=== PATIENT | male | born 1950 | race Caucasian/White ===

== ENCOUNTER 2021-10-28 10:47 | Emergency (ER) | payer OTHER, BC ==
--- OUTSIDE RECORDS SUMMARY | 2021-10-28 10:49 | XMS REPORT | Continuity of Care Document ---
:1950 Author Organization [facility] t Address [address] [place] [address] Dr. Taylor [address] [place] [address] Care Team Providers Name Role Phone SOHAN PERALTA Attending Clinician Unavailable Problems This patient has no known problems. Allergies, Adverse Reactions, Alerts This patient has no known allergies or adverse reactions. Medications This patient has no known medications. Procedures This patient has no known procedures. Encounters Start End Encounter Admission Attending Care Care Encounter Source Date/Time Date/Time Type Type Clinicians Facility Department ID 2020-02-17 2020-02-17 Outpatient FABIAN [facility] [id number] [address] 00:00:00 00:00:00 SOHAN [address] 2020-02-17 2020-02-17 Outpatient FABIAN [facility] [id number] 00:00:00 00:00:00 SOHAN [address] Results Test Description Test Time Test Comments Results Result Comments Source SURG 2018-01-06 13:32:00 --------RUN DATE: 01/06/18 [facility] - LAB *LIVE* PAGE 1 RUN TIME: 1332 Specimen Inquiry RUN USER: INTERFACE --------PATIENT: ADALI SÁNCHEZ LOC: [place] U #: [id number] AGE/SX: 67/M ROOM: [facility] RE01/04/18REG DR: Randall Quiñones MD : 50 BED: 1 DIS: 01/06/18 STATUS: DIS IN TLOC: -------- SPEC #: [id number] RECD: 01/05/18 STATUS: HILL REQ #: [id number] ASTER: 01/04/[address]: Randall Quiñones MD ENTERED: 01/05/18 SP TYPE: SURG OTHR DR: Raji Almazan MD, Musaddiq MDORDERED: SURG PATH LVL 4 COPIES TO: Randall Quiñ[place] [id number] [address] [place] [address] [email or web address] Raji Almazan MD [address] [facility] [address] [place] [address] [place] [address] [address] [place], [place] [id number] HISTOLOGY: TISSUE ID BLK PCS CODY LEV PROCEDURE DISPOSITION ____ ___ ___ ___ PROSTATE, NOS A 1-15 1 PROCEDURES: SURG PATH LVL 4 (01/05/18) TISSUES: A. PROSTATE, NOS - PROSTATE CHIPS CLINICAL HISTORY BENIGN PROSTATIC HYPERTROPHY W/OUTFLOW OBSTRUCTION CPT CODES CPT CODE(S): 37870 , , , , , , FINAL DIAGNOSIS Prostate chips, transurethral resection: BENIGN NODULAR HYPERPLASIA CONTINUED ON NEXT PAGE --------RUN DATE: 01/06/18 [facility] - LAB *LIVE* PAGE 2 RUN TIME: 1332 Specimen Inquiry RUN USER: INTERFACE --------SPEC #: [id number] PATIENT: ADALI SÁNCHEZ #[id number] (Continued) GROSS DESCRIPTION Prostate chips. Received in formalin are multiple irregular fragments of duncan-brown fibrous tissue, 8.5 x 7.5 x 0.8 cm and weigh 15.2 grams. Foam Gun Operator sections submitted as A1 - A13. ba/nr Grossing performed at [facility], [address] [place] [address], [address], [place] [address]. Electric Trucker: Sony Wyatt M.D. MICROSCOPIC DESCRIPTION Prostate chips. Sections demonstrate a nodular proliferation of stromal tissue with cystic glands. Focal clusters of lymphocytes are seen throughout the stroma. There is no evidence of malignancy. /cm Signed SIGNATURE ON FILE Senait Luna 01/06/18 1332 -------- END OF REPORT
--- NOTE | 2021-10-28 11:23 | RAD REPORT ---
EXAM DESCRIPTION: CT - Head C Spine Mpr Wo Con - 10/28/2021 11:01 am CLINICAL HISTORY: Head and neck injury status post fall. Head and neck pain COMPARISON: None. TECHNIQUE: Computed axial tomography of the head and cervical spine was obtained. Sagittal and coronal reconstruction was performed. All CT scans are performed using dose optimization technique as appropriate and may include automated exposure control or mA/KV adjustment according to patient size. FINDINGS: An intracranial bleed is not seen. The ventricles are normal in caliber. An extra-axial fl uid collection is not noted.Fluid within the visualized sinuses and mastoids is not seen A cervical fracture is not visualized. No dislocation is noted. Slight posterior subluxation C4 on C5 . No soft tissue swelling seen IMPRESSION: No acute intracranial abnormality is seen. A cervical fracture is not visualized. If the patient continues to have symptoms to suggest intracra nial /spinal cord/ligamentous pathology then MRI would be recommended
--- NOTE | 2021-10-28 11:24 | RAD REPORT ---
EXAM DESCRIPTION: RAD - Elbow Right 3 View - 10/28/2021 11:12 am CLINICAL HISTORY: Elbow pain FINDINGS: No fracture or dislocation is seen.
--- NOTE | 2021-10-28 11:26 | RAD REPORT ---
EXAM DESCRIPTION: Leoncio Single View10/28/2021 11:12 am CLINICAL HISTORY: Chest pain COMPARISON: none FINDINGS: The lungs appear clear of acute infiltrate. The heart is normal size IMPRESSION: No acute abnormalities displayed
[2021-10-28] MEDS ORDERED: LIDOCAINE 1% W/EPI 1:100,000 MDV 20 ML VIAL ONE (11:46)
[2021-10-28 11:49] LABS: Hematocrit 47.8 % (39.6-49.0); Lymphocytes % 14.9 % (15.3-44.8); RBC Red Blood Cell Count 5.09 M/uL (4.33-5.43)
[2021-10-28 11:59] LABS: Potassium 5.4 mmol/L (3.5-5.1)
[2021-10-28] MEDS ORDERED: TETANUS & DIPHTHERIA TOX,ADULT 0.5 ML VIAL ONE (12:07)
--- NOTE | 2021-10-28 12:25 | ER ---
Nurse's Notes [facility] Name: Evi Dubose III Age: 71 yrs Sex: Male : 1950 Arrival Date: 10/28/2021 Time: 10:47 Bed 2 Private MD: Diagnosis: Laceration without foreign body of right elbow, initial encounter;Fall;Lost of Conciousness Presentation: 10/28 10:50 Ebola Screen: No symptoms or risks identified at this time. Initial Sepsis Screen: Does ph the patient meet any 2 criteria? No. Patient's initial sepsis screen is negative. Does the patient have a suspected source of infection? No. Patient's initial sepsis screen is negative. Risk Assessment: Do you want to hurt yourself or someone else? Patient reports no desire to harm self or others. Onset of symptoms was October 28, 2021. 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 Coronavirus screen: Vaccine status: Patient reports receiving the 2nd dose of the covid vaccine. 10:58 Care prior to arrival: Medication(s) given: Normal saline infusion, 250 mL IV ph initiated. 20 GA, in the left antecubital area. Mechanism of Injury: Fall Scaffold approximately 3 feet. Trauma event details: Injury occurred in the [facility], Injury occurred: at home. Injury occurred: October 28, 2021. Trauma Activation: Alert Physician: ED Physician; Name: ; Notified At: ; Arrived At: Physician: General Surgeon; Name: ; Notified At: ; Arrived At: Physician: Radiology; Name: ; Notified At: ; Arrived At: Physician: Respiratory; Name: ; Notified At: ; Arrived At: Physician: Lab; Name: ; Notified At: ; Arrived At: Historical: - Allergies: 10:48 No Known Allergies; ph - Home Meds: 10:48 atorvastatin 10 mg Oral tab 1 tab once daily [Active]; Synthroid Oral [Active]; ph Claritin 10 mg Oral tab 1 tab once daily [Active]; - PMHx: 10:48 "prostate swelling"; Hypertension; Hypothyroidism; Kidney stones; R inguenal hernia; ph - Immunization history:: Adult Immunizations unknown. - Social history:: Smoking status: Patient denies any tobacco usage or history of. - Immunization history: Last tetanus immunization: unknown. Screenin:49 Abuse screen: Denies threats or abuse. Denies injuries from another. Nutritional ph screening: No deficits noted. Tuberculosis screening: No symptoms or risk factors identified. Fall Risk None identified. Primary Survey: 10:43 NO uncontrolled hemorrhage observed. A: The client is awake and alert. The airway is jl7 patent. Breathing/Chest: Spontaneous respiratory effort, equal unlabored respirations, breath sounds clear bilaterally, regular pattern, symmetrical chest rise and fall. Circulation: No external hemorrhage present. Regular and strong central pulse, skin warm/dry/normal color. Disability Client is alert. Exposure/Environment: All clothing and personal items were removed. Forensic evidence collection is not deemed to be indicated at this time. Items placed in patient belonging bag. There is no evidence of uncontrolled external bleeding. Obvious injury(ies) are noted at this time: laceration noted to right elbow, bleeding controlled. 12:32 Reassessment Alertness and Airway: Airway Patent Breathing: Spontaneous respiratory ph effort, equal unlabored respirations, breath sounds clear bilaterally, regular pattern with symmetrical chest rise and fall. Circulation: No external hemorrhage noted. Regular and strong central pulse, skin warm/dry/normal color. Disability: Pupils Pupils are equal, round, reactive to light and accomodation. Alert. Assessment: 10:54 General: Appears in no apparent distress. comfortable, Behavior is calm, cooperative, ph appropriate for age. Pain: Complains of pain in right elbow. Neuro: Level of Consciousness is awake, alert, obeys commands, Oriented to person, place, time, situation. Cardiovascular: Capillary refill < 3 seconds in bilateral fingers Patient's skin is warm and dry. Respiratory: No deficits noted. Airway is patent Respiratory effort is even, unlabored. Derm: Skin is healthy with good turgor, Skin is pink, warm \\T\\ dry. Musculoskeletal: Circulation, motion, and sensation intact. Range of motion: intact in all extremities. 11:00 Reassessment: Pt taken to CT via stretcher. ph 11:50 Reassessment: Patient appears in no apparent distress at this time. Patient and/or ph family updated on plan of care and expected duration. Pain level reassessed. Patient is alert, oriented x 3, equal unlabored respirations, skin warm/dry/pink. 11:53 Reassessment: Patient appears in no apparent distress at this time. Patient and/or ph family updated on plan of care and expected duration. Pain level reassessed. Patient is alert, oriented x 3, equal unlabored respirations, skin warm/dry/pink. Dr Alejandro at bedside for laceration repair to R elbow. Vital Signs: 10:48 BP 103 / 72; Pulse 63; Resp 18; Temp 97.5; Pulse Ox 96% on R/A; Weight 77.11 kg; Height ph 5 ft. 7 in. (170.18 cm); 11:54 BP 107 / 69; Pulse 67; Resp 18; Pulse Ox 97% on R/A; ph 10:48 Body Mass Index 26.63 (77.11 kg, 170.18 cm) ph Justin Coma Score: 10:50 Eye Response: spontaneous(4). Verbal Response: oriented(5). Motor Response: obeys ph commands(6). Total: 15. 11:54 Eye Response: spontaneous(4). Verbal Response: oriented(5). Motor Response: obeys ph commands(6). Total: 15. Trauma Score (Adult): 10:50 Eye Response: spontaneous(1); Verbal Response: oriented(1); Motor Response: obeys ph commands(2); Systolic BP: > 89 mm Hg(4); Respiratory Rate: 10 to 29 per min(4); [place] Score: 15; Trauma Score: 12 11:54 Eye Response: spontaneous(1); Verbal Response: oriented(1); Motor Response: obeys ph commands(2); Systolic BP: > 89 mm Hg(4); Respiratory Rate: 10 to 29 per min(4); Justin Score: 15; Trauma Score: 12 ED Course: 10:47 Patient arrived in ED. ph 10:49 Regan Alejandro DO is Attending Physician. ms3 10:49 Arm band placed on Patient placed in an exam room, on a stretcher, on telemetry monitor, ph on pulse oximetry. 10:49 Patient maintains SpO2 saturation greater than 95% on room air. Thermoregulation: warm ph blanket given to patient. 10:50 Triage completed. ph 10:51 Patient has correct armband on for positive identification. Bed in low position. Call ph light in reach. Side rails up X2. Client placed on continuous cardiac and pulse oximetry monitoring. NIBP monitoring applied. Door closed. Noise minimized. Warm blanket given. 10:52 Tiffany Siu, RN is Primary Nurse. ph 11:03 CT Head C Spine In Process Unspecified. EDMS 11:13 XRAY Chest (1 view) In Process Unspecified. EDMS 11:13 Elbow Right 3 View XRAY In Process Unspecified. EDMS 11:51 Wound care: to laceration located on right elbow was irrigated with normal saline, ph Patient tolerated well. 12:00 Assist provider with laceration repair on right elbow that was between 2.6 to 7.5 cm ph using sutures. Set up tray. Performed by Regan Alejandro DO Dressed with Kerlix, Neosporin, Patient tolerated well. 12:22 Junior Morales MD is Referral Physician. ms3 12:22 Referral Physician role handed off by Junior Morales MD ms3 12:22 Chris Downey MD is Referral Physician. ms3 12:33 IV discontinued, intact, bleeding controlled, No redness/swelling at site. Pressure ph dressing applied. Administered Medications: 11:57 Drug: Lidocaine-Epinephrine -1%: (1:100,000) 1 vials Volume: 20 ml; Route: Infiltration;ph 12:27 Follow up: Response: No adverse reaction ph 12:20 Drug: ADAcel 0.5 ml {Automobile Service Station Attendant: Conjectur. Exp: 08/10/2023. Lot #: [id number]. } ph Route: IM; Site: right deltoid; 12:27 Follow up: Response: No adverse reaction ph Medication: 12:14 Vaccine Information Statement (VIS) provided today. Questions and/or concerns ph addressed. VIS edition date: January 04, 2021. Intake: 12:33 IV: 250ml (IV Fluid); Total: 250ml. ph Outcome: 12:24 Discharge ordered by . ms3 12:33 Discharged to home ambulatory, with significant other. ph 12:33 Condition: good 12:33 Discharge instructions given to patient, significant other, Instructed on discharge instructions, follow up and referral plans. wound care, sutures out in 10 days Demonstrated understanding of instructions, follow-up care. 12:34 Patient's length of stay was not longer than 2 hours. ph 12:34 Patient left the ED. ph Signatures: Dispatcher [employer] Tiffany Hardy RN RN ph Flaco Camarena RN RN jl7 Regan Alejandro DO DO ms3
--- NOTE | 2021-10-28 12:25 | EDPHYS ---
Physician Documentation [facility] Name: Evi Dubose III Age: 71 yrs Sex: Male : 1950 Arrival Date: 10/28/2021 Time: 10:47 Bed 2 Private MD: ED Physician Regan Alejandro HPI: 10/28 10:51 This 71 yrs old Male presents to ER via EMS with complaints of Fall Injury. ms3 10:51 Details of fall: The patient fell from a height, off scaffolding, approximately 4 feet. ms3 Onset: The symptoms/episode began/occurred acutely, just prior to arrival. Associated injuries: The patient sustained injury to the head, Right elbow. Severity of symptoms: At their worst the symptoms were mild, in the emergency department the symptoms are unchanged. 71-year-old male presents via [facility] after falling 3 to 4 feet from scaffolding when the scaffolding fell. Patient denies pain at this time. Patient denies alleviating or inciting factors. EMS notes patient did have loss of consciousness on scene. Patient denies blood thinners.. Historical: - Allergies: 10:48 No Known Allergies; ph - Home Meds: 10:48 atorvastatin 10 mg Oral tab 1 tab once daily [Active]; Synthroid Oral [Active]; ph Claritin 10 mg Oral tab 1 tab once daily [Active]; - PMHx: 10:48 "prostate swelling"; Hypertension; Hypothyroidism; Kidney stones; R inguenal hernia; ph - Immunization history:: Adult Immunizations unknown. - Social history:: Smoking status: Patient denies any tobacco usage or history of. - Immunization history: Last tetanus immunization: unknown. ROS: 10:51 Constitutional: Negative for fever, and chills. Neck: Negative for injury, pain, and ms3 swelling, Cardiovascular: Negative for chest pain, and palpitations. Respiratory: Negative for shortness of breath, cough, wheezing, and pleuritic chest pain, Abdomen/GI: Negative for abdominal pain, nausea, vomiting, diarrhea, and constipation, MS/Extremity: Negative for injury and deformity. 10:51 Skin: Positive for Right elbow laceration. 10:51 Neuro: Positive for loss of consciousness. 10:51 All other systems are negative. Exam: 10:51 Constitutional: This is a well developed, well nourished patient who is awake, alert, ms3 and in no acute distress. Eyes: Pupils equal round and reactive to light, extra-ocular motions intact. Lids and lashes normal. Conjunctiva and sclera are non-icteric and not injected. Periorbital areas with no swelling, redness, or edema. Neck: Trachea midline, no cervical lymphadenopathy. Supple, full range of motion without nuchal rigidity, or vertebral point tenderness. No Meningismus. Chest/axilla: Normal chest wall appearance and motion. Nontender with no deformity. Cardiovascular: Regular rate and rhythm with a normal S1 and S2. No gallops, murmurs, or rubs. Normal PMI, no JVD. No pulse deficits. Respiratory: Lungs have equal breath sounds bilaterally, clear to auscultation and percussion. No rales, rhonchi or wheezes noted. No increased work of breathing, no retractions or nasal flaring. Abdomen/GI: Soft, non-tender, with normal bowel sounds. No distension or tympany. No guarding or rebound. No evidence of tenderness throughout. Psych: Awake, alert, with orientation to person, place and time. Behavior, mood, and affect are within normal limits. 10:51 Skin: injury, Right elbow laceration 2 cm. Vital Signs: 10:48 BP 103 / 72; Pulse 63; Resp 18; Temp 97.5; Pulse Ox 96% on R/A; Weight 77.11 kg; Height ph 5 ft. 7 in. (170.18 cm); 11:54 BP 107 / 69; Pulse 67; Resp 18; Pulse Ox 97% on R/A; ph 10:48 Body Mass Index 26.63 (77.11 kg, 170.18 cm) ph Justin Coma Score: 10:50 Eye Response: spontaneous(4). Verbal Response: oriented(5). Motor Response: obeys ph commands(6). Total: 15. 11:54 Eye Response: spontaneous(4). Verbal Response: oriented(5). Motor Response: obeys ph commands(6). Total: 15. Trauma Score (Adult): 10:50 Eye Response: spontaneous(1); Verbal Response: oriented(1); Motor Response: obeys ph commands(2); Systolic BP: > 89 mm Hg(4); Respiratory Rate: 10 to 29 per min(4); Justin Score: 15; Trauma Score: 12 11:54 Eye Response: spontaneous(1); Verbal Response: oriented(1); Motor Response: obeys ph commands(2); Systolic BP: > 89 mm Hg(4); Respiratory Rate: 10 to 29 per min(4); [place] Score: 15; Trauma Score: 12 Laceration: 11:53 Wound Repair of 4cm ( 1.6in ) subcutaneous laceration to right elbow. Irregularly ms3 shaped.. Distal neuro/vascular/tendon intact. Anesthesia: Wound infiltrated with 4 mls of 1% lidocaine w/ Epi. Wound prep: Moderate cleansing by me. Skin closed with 5 4-0 Prolene using simple sutures and sterile technique. Dressed with 4x4's. Patient tolerated well. MDM: 10:50 Patient medically screened. ms3 10:51 Differential diagnosis: abrasion, closed head injury, contusion, laceration. ms3 12:25 Data reviewed: vital signs, nurses notes, lab test result(s), radiologic studies. Data ms3 interpreted: Pulse oximetry: on room air is 97 %. Interpretation: normal. Counseling: I had a detailed discussion with the patient and/or guardian regarding: the historical points, exam findings, and any diagnostic results supporting the discharge/admit diagnosis, lab results, radiology results, the need for outpatient follow up, to return to the emergency department if symptoms worsen or persist or if there are any questions or concerns that arise at home. ED course: Discussed labs, CT scans, physical exam findings with patient. Patient to follow-up with primary care physician in 2 to 3 days. Patient understands and agrees with plan. All questions were answered. Return precautions discussed include worsening symptoms, or any other concerns. On reevaluation patient is alert and oriented x4, in no apparent distress, nontoxic-appearing, speaking full sentences, ambulatory in emergency department.. 10/28 10:50 Order name: Basic Metabolic Panel; Complete Time: 16:24 ms3 10/28 10:50 Order name: CBC with Diff; Complete Time: 16:24 ms3 10/28 10:50 Order name: Type And Screen; Complete Time: 16:24 ms3 10/28 10:50 Order name: CT Head C Spine; Complete Time: 11:34 ms3 10/28 10:50 Order name: XRAY Chest (1 view); Complete Time: 11:34 ms3 10/28 10:50 Order name: Elbow Right 3 View XRAY; Complete Time: 11:34 ms3 10/28 10:50 Order name: Labs collected and sent; Complete Time: 11:00 ms3 10/28 11:38 Order name: Suture Tray Setup; Complete Time: 11:39 ph Administered Medications: 11:57 Drug: Lidocaine-Epinephrine -1%: (1:100,000) 1 vials Volume: 20 ml; Route: Infiltration;ph 12:27 Follow up: Response: No adverse reaction ph 12:20 Drug: ADAcel 0.5 ml {Um Rn: Yasmo. Exp: 08/10/2023. Lot #: [id number]. } ph Route: IM; Site: right deltoid; 12:27 Follow up: Response: No adverse reaction ph Disposition Summary: 10/28/21 12:24 Discharge Ordered Location: Home ms3 Condition: Stable ms3 Diagnosis - Laceration without foreign body of right elbow, initial encounter ms3 - Fall ms3 - Lost of Conciousness ms3 Followup: ms3 - With: Junior Morales MD - When: 48 Hours - Reason: Further diagnostic work-up Followup: ms3 - With: Chris Downey MD - When: 11/07/2021 - Reason: Discharge Instructions: - Discharge Summary Sheet ms3 - Laceration Care, Adult ms3 - Head Injury, Adult, [id number] ms3 Forms: - Medication Reconciliation Form ms3 - Thank You Letter ms3 - Antibiotic Education ms3 - Prescription Opioid Use ms3 Signatures: Dispatcher [employer] Tiffany Hardy RN RN ph Regan Alejandro DO DO ms3
[2021-10-28 12:39] VITALS: TEMP 97.5
[2021-10-28 12:41] VITALS: BP 107/69; O2SAT 97
== END 2021-10-28 12:34 | disposition home or self-care (01) ==
LOC: ER 10:47
PROC: 0JQG0ZZ Repair Right Lower Arm Subcutaneous Tissue and Fascia, Open Approach (ICD-10-PCS; principal; 2021-10-28)
DX: S51.011A Laceration without foreign body of right elbow, initial encounter (principal); R55 Syncope and collapse; W17.89XA Other fall from one level to another, initial encounter; Z23 Encounter for immunization; I10 Essential (primary) hypertension; E03.9 Hypothyroidism, unspecified; Z87.442 Personal history of urinary calculi
CPT/HCPCS: 36415; 70450; 71045; 72125; 80048; 85025; 86850; 86900; 86901; 90471; 90714; 99285

== ENCOUNTER 2022-02-25 16:34 | Emergency (ER) | payer OTHER, BC ==
--- OUTSIDE RECORDS SUMMARY | 2022-02-25 16:47 | XMS REPORT | Continuity of Care Document ---
:1950 Author Organization [facility] t Address [address] [place] [address] Care Team Providers Name Role Phone Provider MD, Not In System Primary Care Physician SOHAN Singleton Attending Clinician Unavailable Raji Almazan Attending Clinician Problems Condition Condition Condition Status Onset Resolution Last Treating Co mments Source Name Details Category Date Date Treatment Clinician Date Bursitis Bursitis Problem Active 2019-01-28 Memoria of of 00:48:29 l shoulder shoulder Castro n (disorder) (disorder) Active Problem 01/28/2019 Data migrated from [employer] on 10/28/14. [facility] Dyslipidem Dyslipide Problem Active 2019-01-28 Memoria ia vimal 00:48:29 l (disorder) (disorder) He rmann Active Problem 01/28/2019 Data migrated from [employer] on 10/28/14. [facility] Hypothyroi Hypothyro Problem Active 2019-01-28 Memoria dism idism 00:48:29 l (disorder) (disorder) He rmann Active Problem 01/28/2019 Data migrated from [employer] on 10/28/14. [facility] Gout Gout Problem Resolve 2019-01-28 Cristofer tereso (disorder) (disorder) d 00:48:29 l Resolved Rickie Problem 01/28/2019 [facility] Kidney Kidney Problem Resolve 2019-01-28 Mem oria stone stone d 00:48:29 l (disorder) (disorder) He rmann Resolved Problem 01/28/2019 Removal [facility] Allergies, Adverse Reactions, Alerts This patient has no known allergies or adverse reactions. Social History Social Habit Start Date Stop Date Quantity Comments Source Social History 2015-10-12 2015-10-12 [facility] 14:48:38 14:48:38 Sex Ass[birth year] At [birth year] [facility] 00:00:00 00:00:00 Smoking Status Start Date Stop Date Source Tobacco smoking consumption unknown [facility] Medications This patient has no known medications. Vital Signs Vital Name Observation Time Observation Value Comments Source BMI Calculated 2017-12-03 15:57:00 Theaori al Rickie Weight 2017-12-03 15:57:00 [facility] Height 2017-12-03 15:57:00 172.72 cm [facility]ie Heart Rate 2017-12-03 15:57:00 [facility] Temperature Oral (F) 2017-12-03 15:57:00 97.8 F [facility] Systolic (mm Hg) 2017-12-03 15:57:00 Cristofer riagillian [facility] Diastolic (mm Hg) 2017-12-03 15:57:00 Mem orial Rickie Procedures Procedure Date / Time Performed Performing Clinician Sour e Collection of venous 2017-12-03 16:05:00 Tabitha l Rickie blood by venipuncture Colonoscopy<sup>1</sup> [facility] Open repair of inguinal [facility] Rickie hernia Plan of Care Planned Activity Planned Date Details Comments Source Future Scheduled 2022-01-29 HEPATITIS B VACCINES [facility] Test 02:49:36 (1 of 3 - 3-dose series) [code = HEPATITIS B VACCINES (1 of 3 - 3-dose series)] Future Scheduled 2022-01-29 COVID-19 VACCINE (#1) [facility] Test 02:49:36 [code = COVID-19 VACCINE (#1)] Future Scheduled 2022-01-29 Hepatitis C screening [facility] Test 02:49:36 (procedure) [code = 186915043] Future Scheduled 2022-01-29 COLONOSCOPY SCREENING [facility] Test 02:49:36 [code = COLONOSCOPY SCREENING] Future Scheduled 2022-01-29 SHINGLES VACCINES (1 [facility] Test 02:49:36 of 2) [code = SHINGLES VACCINES (1 of 2)] Future Scheduled 2022-01-29 65+ PNEUMOCOCCAL [facility] Test 02:49:36 VACCINE (1 - PCV) [code = 65+ PNEUMOCOCCAL VACCINE (1 - PCV)] Future Scheduled 2022-01-29 [facility] 02:49:36 [code = INFLUENZA VACCINE] Encounters Start End Encounter Admission Attending Care Care Encounter Source Date/Time Date/Time Type Type Clinicians Facility Department ID 2020-02-17 2020-02-17 Outpatient FABIAN [facility] [id number] 00:00:00 00:00:00 SOHAN [address] 2020-02-17 2020-02-17 Outpatient FABIAN [facility] [id number] 00:00:00 00:00:00 SOHAN [address] 2019-01-24 2019-01-26 Phone nullFlavo [facility] [id number] Memoria 13:58:00 04:59:59 Message r Primary 06 l Care [facility]-24 2019-01-25 Outpatient [facility] [id number] 08:58:00 23:59:59 06 2017-12-03 2017-12-04 Outpatient nullFlavo [facility] [id number] Memoria 16:00:00 04:59:59 r Primary 02 l Care [facility] Rachel nn Greco 2017-12-03 2017-12-03 Outpatient Norah, [facility] [id number] 11:00:00 23:59:59 Jp 2017-12-03 2017-12-03 [facility] [id number] [facility] 11:00:00 11:00:00 02 gillian Damian 2016-11-25 2016-11-25 Outpatient [facility] ROUSE [id number] [place] 10:00:00 10:00:00 01 gillian Damian 2015-10-12 2015-10-12 Outpatient [facility] [id number] Memoria 10:00:00 10:00:00 00 gillian Damian Results Test Description Test Time Test Comments Results Result Comments Source SURG 2018-01-06 13:32:00 --------RUN DATE: 01/06/18 [facility] - LAB *LIVE* PAGE 1 RUN TIME: 1332 Specimen Inquiry RUN USER: INTERFACE --------PATIENT: ADALI DUBOSE LOC: GillianAuraBLAKE U #: [id number] AGE/SX: 67/M ROOM: [facility] RE01/04/18REG DR: Randall Quiñones MD : 50 BED: 1 DIS: 01/06/18 STATUS: DIS IN TLOC: -------- SPEC #: [id number] RECD: 01/05/18 STATUS: SOUT REQ #: [id number] ASTER: 01/04/[address] [facility] [address]: Randall Quiñones MD ENTERED: 01/05/18 SP TYPE: SURG OTHR DR: Raji Almazan MD, Musaddiq MDORDERED: SURG PATH LVL 4 COPIES TO: Randall Qu[place] [address] [place], [place] [id number] [email or web address] Raji Almazan MD [address] [facility] [address] [place] [address] [place] [address] [place] [address] HISTOLOGY: TISSUE ID BLK PCS CODY LEV PROCEDURE DISPOSITION ____ ___ ___ ___ PROSTATE, NOS A 1-15 1 PROCEDURES: SURG PATH LVL 4 (01/05/18-1057) TISSUES: A. PROSTATE, NOS - PROSTATE CHIPS CLINICAL HISTORY BENIGN PROSTATIC HYPERTROPHY W/OUTFLOW OBSTRUCTION CPT CODES CPT CODE(S): 17170 , , , , , , FINAL DIAGNOSIS Prostate chips, transurethral resection: BENIGN NODULAR HYPERPLASIA CONTINUED ON NEXT PAGE --------RUN DATE: 01/06/18 [facility] - LAB *LIVE* PAGE 2 RUN TIME: 1332 Specimen Inquiry RUN USER: INTERFACE --------SPEC #: [id number] PATIENT: ADALI DUBOSE #[id number] (Continued) GROSS DESCRIPTION Prostate chips. Received in formalin are multiple irregular fragments of duncan-brown fibrous tissue, 8.5 x 7.5 x 0.8 cm and weigh 15.2 grams. Senior Construction Manager sections submitted as A1 - A13. ba/nr Grossing performed at [facility] Pathology, [address] [place] [address], [address], [place] [address]. Rn Field Case Manager: Sony Wyatt M.D. MICROSCOPIC DESCRIPTION Prostate chips. Sections demonstrate a nodular proliferation of stromal tissue with cystic glands. Focal clusters of lymphocytes are seen throughout the stroma. There is no evidence of malignancy. /cm Signed SIGNATURE ON FILE LunaSenait 01/06/18 1332 -------- END OF REPORT
[2022-02-25] MEDS ORDERED: NA CHLORIDE 0.9% 1,000 ML ONE (17:05)
[2022-02-25] MEDS ORDERED: FOLIC ACID 5 MG/ML VIAL ONE (17:05)
--- NOTE | 2022-02-25 17:12 | RAD REPORT ---
EXAM DESCRIPTION: CT - Ct Stroke Brain Wo Cont - 02/25/2022 5:06 pm CLINICAL HISTORY: Blurred vision COMPARISON: September 2021 TECHNIQUE: Computed axial tomography of the head was obtained. All CT scans are performed using dose optimization technique as appropriate and may include automated exposure control or mA/KV adjustment according to patient size. FINDINGS: An intracranial bleed is not seen . The ventricles are normal in caliber. No extra-axial fluid collection is noted. No significant hypodensity within the brain is seen. Fluid within the sinuses/ mastoids is not seen. IMPRESSION: No acute intracranial abnormality is seen. If patient's symptoms persist MRI of the bra in would be recommended. Doctor Larsen of the emergency room notified 4:58 p.m. February 25 2022
[2022-02-25 17:39] LABS: Absolute Lymphocytes (CBC) 1.5 K/uL (0.7-4.9); Hematocrit 45.8 % (39.6-49.0); Lymphocytes % 31.7 % (15.3-44.8); MCV 93.5 fL (80-100); MPV 7.9 fL (7.6-11.3)
[2022-02-25 17:40] LABS: Protime INR 0.98
[2022-02-25 17:42] LABS: ALT/SGPT 37 U/L (12-78); AST/SGOT 29 U/L (15-37); Albumin 3.8 g/dL (3.4-5.0); Alkaline Phosphatase 98 U/L (45-117); BUN Blood Urea Nitrogen 14 mg/dL (7-18); Bicarbonate 27 mmol/L (21-32); Bilirubin Direct 0.1 mg/dL (0-0.2); Bilirubin Total 0.4 mg/dL (0.2-1.0); Glomerular Filtration Rate 68 ml/min (=/>90); Glucose Level 120 mg/dL (74-106); Magnesium 2.1 mg/dL (1.8-2.4); NT PRO-BNP 54 pg/mL (<125); Potassium 3.8 mmol/L (3.5-5.1); Protein, Total 7.6 g/dL (6.4-8.2); Sodium Level 139 mmol/L (136-145); Troponin High Sensitivity 53.1 pg/mL (<58.9)
[2022-02-25 17:44] LABS: C-Reactive Protein < 2.90 mg/L (<3.00)
--- NOTE | 2022-02-25 17:55 | RAD REPORT ---
EXAM DESCRIPTION: Leoncio Single View02/25/2022 5:29 pm CLINICAL HISTORY: cough COMPARISON: September 2021 FINDINGS: The lungs appear clear of acute infiltrate. The heart is normal size IMPRESSION: No acute abnormalities displayed
--- NOTE | 2022-02-25 18:11 | RAD REPORT ---
EXAM DESCRIPTION: MRI - Brain Wo Cont - 02/25/2022 6:00 pm CLINICAL HISTORY: Blurred vision COMPARISON: Head CT February 25, 2022 TECHNIQUE: Axial, sagittal, and coronal magnetic resonance images of the brain were obtained. FINDINGS: Mild signal within periventricular, deep and subcortical white matter probably ischemic ch anges secondary to small vessel disease Diffusion-weighted/ADC mapping does not reveal evidence of acute infarction. The ventricles are normal caliber. An extra-axial fluid collection is not noted. Fluid within the sinuses/mastoids is not seen IMPRESSION: No acute intracranial abnormality noted
--- NOTE | 2022-02-25 18:31 | RAD REPORT ---
EXAM DESCRIPTION: CTHead angio02/25/2022 6:09 pm CLINICAL HISTORY: Blurred vision COMPARISON: None TECHNIQUE: CT angiogram of the head was obtained. 3D MIPS reconstruction performed. All CT scans are performed using dose optimization technique as appropriate and may include automated exposure control or mA/KV adjustment according to patient size. FINDINGS: The basilar, internal carotid, anterior cerebral, middle cerebral and posterior cerebral a rteries are normal caliber. An aneurysm is not seen. A significant stenosis is not noted. Dolichoectasia of the vertebrobasilar artery IMPRESSION: No acute abnormality is displayed
--- NOTE | 2022-02-25 18:32 | RAD REPORT ---
EXAM DESCRIPTION: Isabella Angio02/25/2022 6:10 pm CLINICAL HISTORY: Blurred vision COMPARISON: None TECHNIQUE: 50 cc Isovue 370 was administered intravenously. 3D MIP reconstruction performed All CT scans are performed using dose optimization technique as appropriate and may include automated exposure control or mA/KV adjustment according to patient size. FINDINGS: Common carotid, internal carotid and external carotid arteries bilaterally not demonstrate a significant stenosis. Left vertebral artery is more dominant than the right. No significant stenosis. No dissection. IMPRESSION: No acute abnormality is displayed NASCET criteria used. Mild 0-49% stenosis Moderate 50-69% stenosis Severe 70-99% stenosis
[2022-02-25] MEDS ORDERED: MECLIZINE HCL 12.5 MG TAB ONE (18:36)
[2022-02-25] MEDS ORDERED: ASPIRIN EC 81 MG TAB PO ONE (18:36)
--- NOTE | 2022-02-25 18:37 | EDPHYS ---
Physician Documentation [facility] Name: Evi Dubose III Age: 71 yrs Sex: Male : 1950 Arrival Date: 02/25/2022 Time: 16:37 Bed 6 Private MD: Chris Downey V ED Physician Christiano Larsen HPI: 02/25 18:29 This 71 yrs old Male presents to ER via Ambulatory with complaints of Vision callie Problem, Dizziness. 18:29 The patient presents with dizziness, lightheadedness. Onset: The symptoms/episode callie began/occurred just prior to arrival. Context: occurred at work. Modifying factors: The symptoms are alleviated by nothing, the symptoms are aggravated by nothing. Associated signs and symptoms: The patient has no apparent associated signs or symptoms. Severity of symptoms: At their worst the symptoms were mild in the emergency department the symptoms have resolved and did so just prior to arrival, have improved moderately. Patient's baseline: Neuro: alert and fully oriented. The patient has not experienced similar symptoms in the past. Historical: - Allergies: 17:00 No Known Allergies; bm7 - Home Meds: 17:00 atorvastatin 10 mg Oral tab 1 tab once daily [Active]; Claritin 10 mg Oral tab 1 tab bm7 once daily [Active]; Synthroid Oral [Active]; tamulosin [Active]; - Immunization history:: Adult Immunizations up to date, Client reports receiving the 2nd dose of the Covid vaccine, Client reports receiving the 1st dose of the Covid vaccine. - Social history:: Smoking status: Patient denies any tobacco usage or history of. - Family history:: not pertinent. ROS: 18:29 Constitutional: Negative for fever, chills, and weight loss, Eyes: Negative for injury, callie pain, redness, and discharge, ENT: Negative for injury, pain, and discharge, Neck: Negative for injury, pain, and swelling, Cardiovascular: Negative for chest pain, palpitations, and edema, Respiratory: Negative for shortness of breath, cough, wheezing, and pleuritic chest pain, Abdomen/GI: Negative for abdominal pain, nausea, vomiting, diarrhea, and constipation, Back: Negative for injury and pain, : Negative for injury, bleeding, discharge, and swelling, MS/Extremity: Negative for injury and deformity, Skin: Negative for injury, rash, and discoloration, Psych: Negative for depression, anxiety, suicide ideation, homicidal ideation, and hallucinations, Allergy/Immunology: Negative for hives, rash, and allergies, Endocrine: Negative for neck swelling, polydipsia, polyuria, polyphagia, and marked weight changes, Hematologic/Lymphatic: Negative for swollen nodes, abnormal bleeding, and unusual bruising. 18:29 Neuro: Positive for dizziness, weakness. Exam: 18:29 Constitutional: This is a well developed, well nourished patient who is awake, alert, callie and in no acute distress. Head/Face: Normocephalic, atraumatic. Eyes: Pupils equal round and reactive to light, extra-ocular motions intact. Lids and lashes normal. Conjunctiva and sclera are non-icteric and not injected. Cornea within normal limits. Periorbital areas with no swelling, redness, or edema. ENT: Nares patent. No nasal discharge, no septal abnormalities noted. Tympanic membranes are normal and external auditory canals are clear. Oropharynx with no redness, swelling, or masses, exudates, or evidence of obstruction, uvula midline. Mucous membranes moist. Neck: Trachea midline, no thyromegaly or masses palpated, and no cervical lymphadenopathy. Supple, full range of motion without nuchal rigidity, or vertebral point tenderness. No Meningismus. Chest/axilla: Normal chest wall appearance and motion. Nontender with no deformity. No lesions are appreciated. Cardiovascular: Regular rate and rhythm with a normal S1 and S2. No gallops, murmurs, or rubs. Normal PMI, no JVD. No pulse deficits. Respiratory: Lungs have equal breath sounds bilaterally, clear to auscultation and percussion. No rales, rhonchi or wheezes noted. No increased work of breathing, no retractions or nasal flaring. Abdomen/GI: Soft, non-tender, with normal bowel sounds. No distension or tympany. No guarding or rebound. No evidence of tenderness throughout. Back: No spinal tenderness. No costovertebral tenderness. Full range of motion. Skin: Warm, dry with normal turgor. Normal color with no rashes, no lesions, and no evidence of cellulitis. MS/ Extremity: Pulses equal, no cyanosis. Neurovascular intact. Full, normal range of motion. Neuro: Awake and alert, GCS 15, oriented to person, place, time, and situation. Cranial nerves II-XII grossly intact. Motor strength 5/5 in all extremities. Sensory grossly intact. Cerebellar exam normal. Normal gait. Psych: Awake, alert, with orientation to person, place and time. Behavior, mood, and affect are within normal limits. 18:29 ECG was reviewed by the Attending Physician. Vital Signs: 16:59 BP 128 / 85; Pulse 68; Resp 16; Temp 98.6(TE); Pulse Ox 100% on R/A; Weight 76.2 kg bm7 (R); Height 5 ft. 7 in. (170.18 cm); Pain 0/10; 18:20 BP 118 / 81; Pulse 78; Resp 16; Pulse Ox 99% on R/A; vg1 18:47 BP 126 / 95; Pulse 70; Resp 21; Pulse Ox 98% ; bp 16:59 Body Mass Index 26.31 (76.20 kg, 170.18 cm) bm7 MDM: 16:54 Patient medically screened. callie 18:32 Differential diagnosis: cardiac arrhythmia, CVA, generalized weakness, hypovolemia, callie idiopathic dizziness, near-syncope, TIA. Data reviewed: vital signs, nurses notes, lab test result(s), EKG, radiologic studies, CT scan, MRI, plain films. Data interpreted: surveillance system monitor: rate is 78 beats/min, rhythm is regular, Pulse oximetry: on room air is 99 %. Test interpretation: by ED physician or midlevel provider: ECG, plain radiologic studies. Counseling: I had a detailed discussion with the patient and/or guardian regarding: the historical points, exam findings, and any diagnostic results supporting the discharge/admit diagnosis, lab results, radiology results, the need for outpatient follow up, for definitive care, a family practitioner, a neurologist. 02/25 16:54 Order name: Basic Metabolic Panel; Complete Time: 18:27 [facility] 02/25 16:54 Order name: CBC with Diff; Complete Time: 18:27 [facility] 02/25 16:54 Order name: LFT's; Complete Time: 18:27 callie 02/25 16:54 Order name: Magnesium; Complete Time: 18:27 [facility] 02/25 16:54 Order name: NT PRO-BNP; Complete Time: 18:27 [facility] 02/25 16:54 Order name: PT-INR; Complete Time: 18:27 02/25 16:54 Order name: Troponin HS; Complete Time: 18:27 [facility] 02/25 16:54 Order name: XRAY Chest (1 view); Complete Time: 18:27 02/25 16:54 Order name: Sed Rate; Complete Time: 18:27 02/25 16:54 Order name: CRP; Complete Time: 18:27 [facility] 02/25 16:54 Order name: EKG; Complete Time: 16:55 02/25 16:54 Order name: Cardiac monitoring; Complete Time: 17:02/25 16:54 Order name: EKG - Nurse/Tech; Complete Time: 17:02/25 16:54 Order name: IV Saline Lock; Complete Time: 17: [facility] 02/25 16:54 Order name: Labs collected and sent; Complete Time: 17:02/25 16:54 Order name: O2 Per Protocol; Complete Time: 17:02/25 16:54 Order name: O2 Sat Monitoring; Complete Time: 17: [facility] 02/25 17:04 Order name: Ct Stroke Brain Wo Cont; Complete Time: 17:36 EDMS 02/25 17:04 Order name: Head angio; Complete Time: 18:40 EDMS 02/25 17:04 Order name: Neck Angio; Complete Time: 18:40 EDMS 02/25 17:56 Order name: Brain Wo Cont; Complete Time: 18:27 EDMS EC:29 Rate is 63 beats/min. Rhythm is regular. QRS [employer] is Normal. MD interval is normal. QRS callie interval is normal. QT interval is normal. No Q waves. T waves are Normal. No ST changes noted. Clinical impression: Normal ECG and No evidence of ischemia. Reviewed by me. Administered Medications: 17:13 Drug: foLIC Acid 1 mg Route: IVPB; Site: right antecubital; bp 18:47 Follow up: IV Status: Completed infusion; IV Intake: 100ml bp 17:13 Drug: NS 0.9% 1000 ml Route: IV; Rate: 1 bolus; Site: right antecubital; bp 18:47 Follow up: IV Status: Completed infusion; IV Intake: 1000ml bp 18:45 Drug: Aspirin 81 mg Route: PO; bp 18:46 Follow up: Response: No adverse reaction bp 18:45 Drug: Meclizine 25 mg Route: PO; bp 18:46 Follow up: Response: No adverse reaction bp Point of Care Testing: Blood Glucose: 17:08 Blood Glucose: 130 mg/dL; 7 Ranges: Critical Glucose Levels:Adult <50 mg/dl or >400 mg/dl <40 mg/dl or >180 mg/dl Disposition Summary: 02/25/22 18:36 Discharge Ordered Location: Home callie Problem: new callie Symptoms: have improved callie Condition: Stable callie Diagnosis - Dizziness and giddiness callie - Benign paroxysmal vertigo, unspecified ear callie Followup: callie - With: Chris Downey MD - When: 2 - 3 days - Reason: Recheck today's complaints, Continuance of care, Re-evaluation by your physician Followup: callie - With: Cuauhtemoc Chand MD - When: 2 - 3 days - Reason: Recheck today's complaints, Re-evaluation by your physician Discharge Instructions: - Discharge Summary Sheet callie - Benign Positional Vertigo callie - Dizziness callie - Vertigo callie - Vertigo, [id number] callie - Aspirin and Your Heart callie - Dizziness, [id number] callie Forms: - Medication Reconciliation Form callie - Thank You Letter callie - Antibiotic Education callie - Prescription Opioid Use [facility] Prescriptions: - Meclizine 25 mg Oral Tablet - take 1 tablet by ORAL route every 8 hours As needed; 30 tablet; Refills: 0, callie Product Selection Permitted - Zofran 4 mg Oral Tablet - take 1 tablet by ORAL route every 12 hours As needed; 20 tablet; Refills: 0, callie Product Selection Permitted Signatures: Dispatcher [employer] EDMS Christiano Larsen MD MD cha Peltier, Brian, RN RN Sangita Mcduffie, RN RN 7 Corrections: (The following items were deleted from the chart) 17:01 17:00 PMHx: Kidney stones; 7 7 17:01 17:00 PMHx: Hypertension; 7 7 17: 17:00 PMHx: Hypothyroidism; 7 7 17:01 17:00 PMHx: "prostate swelling"; 7 7 17:01 17:00 PMHx: R inguenal hernia; 7 7 17:56 17:03 Stroke Protocol ordered. EDOH EDMS
--- NOTE | 2022-02-25 18:37 | ER ---
Nurse's Notes [facility] Name: Evi Dubose III Age: 71 yrs Sex: Male : 1950 Arrival Date: 02/25/2022 Time: 16:37 Bed 6 Private MD: Chris Downey V Diagnosis: Dizziness and giddiness;Benign paroxysmal vertigo, unspecified ear Presentation: 02/25 16:59 Chief complaint: Patient states: at 4:10 today I was having a conversation and my eyes bm7 crossed and I felt very dizzy. Coronavirus screen: At this time, the client does not indicate any symptoms associated with coronavirus-19. Ebola Screen: No symptoms or risks identified at this time. Initial Sepsis Screen: Does the patient meet any 2 criteria? No. Patient's initial sepsis screen is negative. Does the patient have a suspected source of infection? No. Patient's initial sepsis screen is negative. Risk Assessment: Do you want to hurt yourself or someone else? Patient reports no desire to harm self or others. Onset of symptoms was February 25, 2022 at 16:10. Care prior to arrival: Medication(s) given: ASA, x 3. 16:59 Method Of Arrival: Ambulatory bm7 16:59 Acuity: FAITH 2 bm7 Triage Assessment: 17:00 General: Appears in no apparent distress. comfortable, Behavior is calm, cooperative, bm7 appropriate for age. Pain: Denies pain. EENT: No deficits noted. No signs and/or symptoms were reported regarding the EENT system. Neuro: Level of Consciousness is awake, alert, obeys commands, Oriented to person, place, time, situation, Parts Control Clerk are equal bilaterally Full function Gait is steady, Speech is normal, Facial symmetry appears normal, Pupils are PERRLA, Reports blurred vision dizziness. Cardiovascular: No deficits noted. Respiratory: No deficits noted. GI: No deficits noted. No signs and/or symptoms were reported involving the gastrointestinal system. : No deficits noted. No signs and/or symptoms were reported regarding the genitourinary system. Derm: No deficits noted. No signs and/or symptoms reported regarding the dermatologic system. Musculoskeletal: No deficits noted. No signs and/or symptoms reported regarding the musculoskeletal system. Historical: - Allergies: 17:00 No Known Allergies; bm7 - Home Meds: 17:00 atorvastatin 10 mg Oral tab 1 tab once daily [Active]; Claritin 10 mg Oral tab 1 tab bm7 once daily [Active]; Synthroid Oral [Active]; tamulosin [Active]; - Immunization history:: Adult Immunizations up to date, Client reports receiving the 2nd dose of the Covid vaccine, Client reports receiving the 1st dose of the Covid vaccine. - Social history:: Smoking status: Patient denies any tobacco usage or history of. - Family history:: not pertinent. Screenin:55 Abuse screen: Denies threats or abuse. Nutritional screening: No deficits noted. vg1 Tuberculosis screening: No symptoms or risk factors identified. Fall Risk No fall in past 12 months (0 pts). No secondary diagnosis (0 pts). IV access (20 points). Ambulatory Aid- None/Bed Rest/Nurse Assist (0 pts). Gait- Normal/Bed Rest/Wheelchair (0 pts) Mental Status- Oriented to own ability (0 pts). Total Preston Fall Scale indicates No Risk (0-24 pts). Assessment: 16:55 General: Appears in no apparent distress. comfortable, Behavior is calm, cooperative. vg1 Pain: Denies pain. Neuro: Level of Consciousness is awake, alert, obeys commands, Oriented to person, place, time, situation, Parts Control Clerk are equal bilaterally Moves all extremities. Gait is steady, Speech is normal, Facial symmetry appears normal, Reports dizziness, headache. Cardiovascular: Patient's skin is warm and dry. Respiratory: Airway is patent Respiratory effort is even, unlabored. GI: No signs and/or symptoms were reported involving the gastrointestinal system. : No signs and/or symptoms were reported regarding the genitourinary system. EENT: No signs and/or symptoms were reported regarding the EENT system. Derm: Skin is pink, warm \\T\\ dry. Musculoskeletal: Circulation, motion, and sensation intact. 17:55 Reassessment: Patient appears in no apparent distress at this time. Patient and/or vg1 family updated on plan of care and expected duration. Pain level reassessed. Patient is alert, oriented x 3, equal unlabored respirations, skin warm/dry/pink. Patient denies pain at this time. Patient states feeling better. 18:47 Reassessment: PT MO HOME AMBULATORY. bp Vital Signs: 16:59 BP 128 / 85; Pulse 68; Resp 16; Temp 98.6(TE); Pulse Ox 100% on R/A; Weight 76.2 kg bm7 (R); Height 5 ft. 7 in. (170.18 cm); Pain 0/10; 18:20 BP 118 / 81; Pulse 78; Resp 16; Pulse Ox 99% on R/A; vg1 18:47 BP 126 / 95; Pulse 70; Resp 21; Pulse Ox 98% ; bp 16:59 Body Mass Index 26.31 (76.20 kg, 170.18 cm) bm7 ED Course: 16:37 Patient arrived in ED. mr 16:37 Chris Downey MD is Private Physician. mr 16:51 Christiano Larsen MD is Attending Physician. callie 16:54 Stefani Robles, JASPER is Primary Nurse. vg1 16:55 Patient has correct armband on for positive identification. Placed in gown. Bed in low vg1 position. Call light in reach. Side rails up X2. Adult w/ patient. Client placed on continuous cardiac and pulse oximetry monitoring. NIBP monitoring applied. 16:55 No provider procedures requiring assistance completed. vg1 17:00 Triage completed. bm7 17:00 Arm band placed on right wrist. bm7 17:07 Ct Stroke Brain Wo Cont In Process Unspecified. EDMS 17:13 Inserted saline lock: 20 gauge in right antecubital area, using aseptic technique. bp Blood collected. 17:31 XRAY Chest (1 view) In Process Unspecified. EDMS 17:59 Brain Wo Cont In Process Unspecified. EDMS 18:12 Head angio In Process Unspecified. EDMS 18:12 Neck Angio In Process Unspecified. EDMS 18:34 Chris Downey MD is Referral Physician. callie 18:34 Cuauhtemoc Chand MD is Referral Physician. callie 18:48 IV discontinued, intact, bleeding controlled, No redness/swelling at site. Pressure bp dressing applied. Administered Medications: 17:13 Drug: foLIC Acid 1 mg Route: IVPB; Site: right antecubital; bp 18:47 Follow up: IV Status: Completed infusion; IV Intake: 100ml bp 17:13 Drug: NS 0.9% 1000 ml Route: IV; Rate: 1 bolus; Site: right antecubital; bp 18:47 Follow up: IV Status: Completed infusion; IV Intake: 1000ml bp 18:45 Drug: Aspirin 81 mg Route: PO; bp 18:46 Follow up: Response: No adverse reaction bp 18:45 Drug: Meclizine 25 mg Route: PO; bp 18:46 Follow up: Response: No adverse reaction bp Medication: 16:55 VIS not applicable for this client. vg1 Point of Care Testing: Blood Glucose: 17:08 Blood Glucose: 130 mg/dL; bm7 Ranges: Intake: 18:47 IV: 1000ml; Total: 1000ml. bp 18:47 IV: 100ml; Total: 1100ml. bp Outcome: 18:36 Discharge ordered by . callie 18:48 Discharged to home ambulatory. bp 18:48 Condition: stable 18:48 Discharge instructions given to patient, Instructed on discharge instructions, follow up and referral plans. medication usage, Demonstrated understanding of instructions, follow-up care, medications, Prescriptions given X 2. 19:04 Patient left the ED. bp Signatures: Dispatcher [employer] EDMS Christiano Larsen MD MD cha Rivera Annabella Donald Murillo, RN RN bp Stefani Robles, RN RN vg1 Sangita Alexander, JASPER RN bm7 Corrections: (The following items were deleted from the chart) 17:01 17:00 PMHx: Kidney stones; 7 7 17: 17:00 PMHx: Hypertension; 7 7 17: 17:00 PMHx: Hypothyroidism; 7 7 17: 17:00 PMHx: "prostate swelling"; 7 7 17: 17:00 PMHx: R inguenal hernia; 7 7
--- NOTE | 2022-02-26 13:06 | EKG ---
Test Date: 2022-02-25 Test Time: 17:12:30 Sheet Metal Welder: FORREST MEASUREMENT RESULTS: Intervals: Rate: 63 ME: 162 QRSD: 80 QT: 388 QTc: 397 Walton: P: 52 ME: 162 QRS: 11 T: 52 INTERPRETIVE STATEMENTS: Normal sinus rhythm Normal ECG No previous ECG available for comparison Electronically Signed On 02-26-22 13:04:54 CDT by Dc Barraza
[2022-02-27 23:00] VITALS: TEMP 98.6
[2022-02-27 23:12] VITALS: BP 126/95; O2SAT 98
== END 2022-02-25 19:04 | disposition home or self-care (01) ==
LOC: ER 16:34
DX: H81.10 Benign paroxysmal vertigo, unspecified ear (principal)
CPT/HCPCS: 96365; 93005; 85025; 80048; 36415; 83735; 85610; 82947; 80076; 85652; 84484; 83880; 86140; 70496; 70498; 70450; 71045; 70551; 99284; 96366; Q9967; J8597; J7030